=== PATIENT | male | born 1985 | race American Indian/Alaskan Native ===

== ENCOUNTER 2018-12-03 18:29 | Observation (INO) | payer OTHER ==
[~2018-12-03] VITALS: Ht 167.6 cm; Wt 72.6 kg
[~2018-12-03 18:29] MED LIST: ATOM25; BENZ1; BUSP15 PO; Benztropine Mesy1 MG; CHOL10002; DIVA500EC; DIVA500EC PO; GUAN1; LITH450ER; LORA.5 PO; LORA1 PO; MELA3; QUET200; QUET25; RISP1 PO; RISP3; RISP4; TRAZ50; [UNRECOGNIZED DRUG - REMARK]; [UNRECOGNIZED DRUG - REMARK]; [UNRECOGNIZED DRUG - REMARK]
[2018-12-03 19:06] LABS: BASOPHILS ABSOLUTE AUTO 0.07 K/mm3 (0.00-0.23); BASOPHILS PERCENT AUTO 1 % (0-2); EOSINOPHILS ABSOLUTE AUTO 0.26 K/mm3 (0.00-0.68); EOSINOPHILS PERCENT AUTO 2 % (0-6); Hematocrit 44.1 % (37.0-53.0); Hemoglobin 15.2 g/dL (13.5-17.5); IMMATURE GRAN ABSOLUTE AUTO 0.04 K/mm3 (0.00-0.10); IMMATURE GRAN PERCENT AUTO 0 % (0-1); LYMPHOCYTES ABSOLUTE AUTO 2.96 K/mm3 (0.84-5.20); LYMPHOCYTES PERCENT AUTO 24 % (21-46); MONOCYTES ABSOLUTE AUTO 0.95 K/mm3 (0.16-1.47); MONOCYTES PERCENT AUTO 8 % (4-13); Mean Corpuscular HGB Conc 34.5 g/dL (31.5-36.5); Mean Corpuscular Volume 90 fL (80-100); NEUTROPHILS ABSOLUTE AUTO 7.88 K/mm3 (1.96-9.15); NEUTROPHILS PERCENT AUTO 65 % (41-73); Platelet Count 282 K/mm3 (150-400); RDW Coefficient Variation 11.9 % (11.7-14.2); Red Blood Cell Count 4.91 M/mm3 (4.30-5.90); White Blood Cell Count 12.16 K/mm3 (4.00-11.30)
[2018-12-03 19:39] LABS: Alanine Aminotransfer (ALT/SGP 29 U/L (12-78); Albumin, Blood 4.7 g/dL (3.4-5.0); Albumin/Globulin Ratio 1.6 (0.8-1.8); Alk Phos 62 U/L (50-136); Anion Gap 9 mmol/L (6-16); Aspartate Aminotrans (AST/SGOT 26 U/L (12-37); Bilirubin, Total 0.4 mg/dL (0.1-1.0); Blood Urea Nitrogen 6 mg/dL (8-24); Bun/Creatinine Ratio 7.2 (12.0-20.0); CO2, Blood 25 mmol/L (21-32); Chloride, Blood 102 mmol/L (98-108); Creatinine, Blood 0.84 mg/dL (0.60-1.20); Ethanol (Alcohol), Blood, Med <3 mg/dL; Globulin, Blood 2.9 g/dL (2.2-4.0); Glomerular Filtration Rate >60 (60-); Glucose, Blood 125 mg/dL (70-99); Potassium, Blood 3.6 mmol/L (3.5-5.5); Salicylate 9.4 mg/dL (2.8-20.0); Sodium, Blood 136 mmol/L (136-145); Total Protein, Blood 7.6 g/dL (6.4-8.2)
[2018-12-03 19:44] LABS: Thyroid Stimulating Hormone 0.727 uIU/mL (0.360-4.800)
[2018-12-03 20:02] LABS: Acetaminophen, Random <2.0 ug/mL (10.0-30.0)
[2018-12-03 20:47] LABS: Source, Urine Clean Catch
[2018-12-03 20:49] LABS: Bilirubin, Urine Neg (Neg); Blood, Urine Neg (Neg); Glucose Qualitative, Urine Neg (Neg); Ketones, Urine Neg (Neg); Leukocyte Esterase, Urine Neg (Neg); Nitrite, Urine Neg (Neg); Protein, Urine Neg (Neg); Urobilinogen, Urine NORM (Normal)
[2018-12-03 20:50] LABS: Appearance, Urine Clear (Clear); Color, Urine Yellow (P-Yellow)
[2018-12-03 21:04] LABS: U Amphetamine Screen Not Detected; U Barbituate Screen Not Detected; U Benzodiazapine Screen Not Detected; U Buprenorphine Screen Not Detected; U Cannabinoids Screen DETECTED; U Cocaine Screen Not Detected; U Methadone Screen Not Detected; U Methamphetamine Screen Not Detected; U Opiates Screen Not Detected; U Oxycodone Screen Not Detected; U Phencyclidine Screen Not Detected; U Propoxyphene Screen Not Detected
== END 2018-12-06 17:25 ==
LOC: ER 18:29 → EOR 18:39
PROVIDERS: ADMIT Emergency Medicine
DX: F23 Brief psychotic disorder (principal); F17.200 Nicotine dependence, unspecified, uncomplicated; Z79.899 Other long term (current) drug therapy
CPT/HCPCS: 36415; 80053; 81003; 84443; 85025; 96372; 99285-25; G0378; G0480; J1630; J2060; Q3014

== ENCOUNTER 2021-03-13 18:55 | Emergency (ER) | payer OTHER ==
[~2021-03-13] VITALS: Ht 170.2 cm; Wt 77.1 kg
== END 2021-03-13 21:10 | disposition home or self-care (01) ==
LOC: ER 18:55
DX: F25.0 Schizoaffective disorder, bipolar type (principal); Z76.0 Encounter for issue of repeat prescription; Z79.899 Other long term (current) drug therapy; F31.9 Bipolar disorder, unspecified
CPT/HCPCS: 99282

== ENCOUNTER 2023-08-08 06:37 | Observation (INO) | payer OTHER ==
[~2023-08-08] VITALS: Ht 175.3 cm; Wt 72.6 kg
[2023-08-08 07:17] LABS: Source, Urine Voided
[2023-08-08 07:20] LABS: Appearance, Urine Clear (Clear); Bilirubin, Urine Neg (Neg); Blood, Urine Neg (Neg); Color, Urine Yellow (P-Yellow); Glucose Qualitative, Urine Neg (Neg); Ketones, Urine Neg (Neg); Leukocyte Esterase, Urine Neg (Neg); Nitrite, Urine Neg (Neg); Protein, Urine Neg (Neg); Urobilinogen, Urine NORM (Normal)
[2023-08-08 07:22] LABS: BASOPHILS ABSOLUTE AUTO 0.06 K/mm3 (0.00-0.23); BASOPHILS PERCENT AUTO 1 % (0-2); EOSINOPHILS ABSOLUTE AUTO 0.05 K/mm3 (0.00-0.68); EOSINOPHILS PERCENT AUTO 1 % (0-6); Hematocrit 38.3 % (37.0-53.0); Hemoglobin 13.6 g/dL (13.5-17.5); IMMATURE GRAN ABSOLUTE AUTO 0.03 K/mm3 (0.00-0.10); IMMATURE GRAN PERCENT AUTO 1 % (0-1); LYMPHOCYTES ABSOLUTE AUTO 1.37 K/mm3 (0.84-5.20); LYMPHOCYTES PERCENT AUTO 23 % (21-46); MONOCYTES ABSOLUTE AUTO 0.97 K/mm3 (0.16-1.47); MONOCYTES PERCENT AUTO 16 % (4-13); Mean Corpuscular HGB 31.8 pg (26.0-34.0); Mean Corpuscular HGB Conc 35.5 g/dL (31.5-36.5); Mean Corpuscular Volume 90 fL (80-100); Mean Platelet Volume 9.4 fL (9.1-12.4); NEUTROPHILS ABSOLUTE AUTO 3.46 K/mm3 (1.96-9.15); NEUTROPHILS PERCENT AUTO 58 % (41-73); Platelet Count 182 K/mm3 (150-400); RDW Coefficient Variation 13.2 % (11.7-14.2); RDW Standard Deviation 43.5 fL (35.1-46.3); Red Blood Cell Count 4.28 M/mm3 (4.30-5.90); White Blood Cell Count 5.94 K/mm3 (4.00-11.30)
[2023-08-08 07:34] LABS: U Amphetamine Screen Not Detected; U Barbituate Screen Not Detected; U Benzodiazapine Screen Not Detected; U Buprenorphine Screen Not Detected; U Cannabinoids Screen DETECTED; U Cocaine Screen Not Detected; U Methadone Screen Not Detected; U Methamphetamine Screen Not Detected; U Opiates Screen Not Detected; U Oxycodone Screen Not Detected; U Phencyclidine Screen Not Detected
[2023-08-08 07:45] LABS: Ethanol (Alcohol), Blood, Med <3 mg/dL; Salicylate 4.3 mg/dL (2.8-20.0)
[2023-08-08 07:48] LABS: Alanine Aminotransfer (ALT/SGP 28 U/L (12-78); Albumin, Blood 3.8 g/dL (3.4-5.0); Albumin/Globulin Ratio 1.1 (0.8-1.8); Alk Phos 60 U/L (50-136); Anion Gap 3 mmol/L (6-16); Aspartate Aminotrans (AST/SGOT 31 U/L (12-37); Bilirubin, Total 0.3 mg/dL (0.1-1.0); Blood Urea Nitrogen 10 mg/dL (8-24); Bun/Creatinine Ratio 10.5 (12.0-20.0); CO2, Blood 29 mmol/L (21-32); Calcium, Blood 9.4 mg/dL (8.5-10.1); Chloride, Blood 100 mmol/L (98-108); Creatinine, Blood 0.95 mg/dL (0.60-1.20); Globulin, Blood 3.4 g/dL (2.2-4.0); Glomerular Filtration Rate 107 (60-); Glucose, Blood 99 mg/dL (70-99); Potassium, Blood 4.3 mmol/L (3.5-5.5); Sodium, Blood 132 mmol/L (136-145); Total Protein, Blood 7.2 g/dL (6.4-8.2)
[2023-08-08 07:49] LABS: Acetaminophen, Random <2.0 ug/mL (10.0-30.0)
[2023-08-08] MEDS ORDERED: PALIPERIDONE ER6 MG PO (08:26)
[2023-08-08] MEDS ORDERED: ATORVASTATIN CA20 MG PO (08:26)
[2023-08-08] MEDS ORDERED: FENO160 PO (08:26)
[2023-08-08] MEDS ORDERED: OMEP20ER PO (08:26)
[2023-08-08] MEDS ORDERED: CLONAZEPAM2 MG PO (08:26)
[2023-08-08] MEDS ORDERED: PALIPERIDONE ER3 MG PO (08:26)
[2023-08-08] MEDS ORDERED: PRAZ2 PO (08:27)
[2023-08-08] MEDS ORDERED: MELA3 PO (08:28)
[2023-08-08] MEDS ORDERED: NEURONTIN300 MG PO (08:28)
[2023-08-08] MEDS ORDERED: HydrOXYzine Pamoate 50 MG Cap PO PRN (17:15)
[2023-08-08] MEDS ORDERED: Paliperidone 1.5 MG TAB.ER.24 PO SCH ×2 (17:30→21:00)
[2023-08-08] MEDS ORDERED: Prazosin HCl 1 MG Cap PO SCH (21:00)
[2023-08-08] MEDS ORDERED: ClonazePAM 1 MG Tab PO SCH (21:00)
[2023-08-08] MEDS ORDERED: Divalproex Sodium 500 MG TABLET.DR PO SCH (21:00)
[2023-08-08] MEDS ORDERED: Gabapentin 300 MG Cap PO SCH (21:00)
[2023-08-08] MEDS ORDERED: Melatonin 3 MG Tab PO SCH (21:00)
[2023-08-08] MEDS ORDERED: QUEtiapine Fumarate 200 MG Tab PO SCH (21:00)
[2023-08-08] MEDS ORDERED: Nicotine 14 MG PATCH TOP ONE (21:35)
[2023-08-09] MEDS ORDERED: Nicotine 21 MG PATCH TOP SCH (09:00)
[2023-08-09] MEDS ORDERED: Cholecalciferol 1000 Unit Tablet (=25MCG) PO SCH (09:00)
[2023-08-09] MEDS ORDERED: Paliperidone 1.5 MG TAB.ER.24 PO SCH (12:00)
[2023-08-09 16:17] LABS: CHOL/HDL RATIO 2.4; Cholesterol 132 mg/dL (50-200); HDL Cholesterol 55 mg/dL (>39); LDL/HDL RATIO 1.1; Low Density Lipoprotein Chol 60 mg/dL (0-110); Triglycerides 84 mg/dL (30-140); Very Low Density Lipoprot Chol 16 mg/dL (6-28)
[2023-08-09 16:27] LABS: Albumin, Blood 3.6 g/dL (3.4-5.0); Albumin/Globulin Ratio 1.2 (0.8-1.8); Bilirubin, Direct 0.2 mg/dL (0.0-0.3); Bilirubin, Indirect 0.2 mg/dL (0.1-0.7); Bilirubin, Total 0.4 mg/dL (0.1-1.0); Globulin, Blood 3.1 g/dL (2.2-4.0); Total Protein, Blood 6.7 g/dL (6.4-8.2)
[2023-08-09] MEDS ORDERED: Haloperidol Lactate Inj. 5 MG/ML Injection IM ONE (18:45)
[2023-08-09] MEDS ORDERED: DiphenhydrAMINE HCl 50 MG/ML 1ML Vial IM ONE (18:45)
[2023-08-09] MEDS ORDERED: Atorvastatin 10 MG Tab PO SCH (21:00)
[2023-08-10] MEDS ORDERED: Omeprazole 20 MG CapCR PO SCH (06:00)
[2023-08-10] MEDS ORDERED: Fenofibrate, Micronized 134 MG Capsule PO SCH (09:00)
[2023-08-11] MEDS ORDERED: OLANZapine 10 MG Vial IM PRN (11:10)
[2023-08-12] MEDS ORDERED: Ibuprofen 400 MG Tab PO ONE (18:05)
[2023-08-14] MEDS ORDERED: ClonazePAM 1 MG Tab PO SCH (21:00)
[2023-08-15] MEDS ORDERED: ClonazePAM 1 MG Tab PO SCH (08:00)
[2023-08-16] MEDS ORDERED: Omeprazole 20 MG CapCR PO ONE (10:45)
[2023-08-18] MEDS ORDERED: Nicotine 14 MG PATCH TOP SCH (21:10)
[2023-08-19] MEDS ORDERED: ClonazePAM 1 MG Tab PO SCH (21:00)
[2023-08-20] MEDS ORDERED: Omeprazole 20 MG CapCR PO SCH (08:00)
[2023-08-20] MEDS ORDERED: HydrOXYzine Pamoate 50 MG Cap PO PRN (12:10)
[2023-08-20] MEDS ORDERED: Nicotine 21 MG PATCH TOP SCH (13:00)
[2023-08-20 22:56] LABS: BASOPHILS ABSOLUTE AUTO 0.07 K/mm3 (0.00-0.23); BASOPHILS PERCENT AUTO 1 % (0-2); EOSINOPHILS ABSOLUTE AUTO 0.08 K/mm3 (0.00-0.68); EOSINOPHILS PERCENT AUTO 1 % (0-6); Hematocrit 38.8 % (37.0-53.0); Hemoglobin 13.6 g/dL (13.5-17.5); IMMATURE GRAN ABSOLUTE AUTO 0.01 K/mm3 (0.00-0.10); IMMATURE GRAN PERCENT AUTO 0 % (0-1); LYMPHOCYTES ABSOLUTE AUTO 2.36 K/mm3 (0.84-5.20); LYMPHOCYTES PERCENT AUTO 31 % (21-46); MONOCYTES ABSOLUTE AUTO 1.12 K/mm3 (0.16-1.47); MONOCYTES PERCENT AUTO 15 % (4-13); Mean Corpuscular HGB 31.3 pg (26.0-34.0); Mean Corpuscular HGB Conc 35.1 g/dL (31.5-36.5); Mean Corpuscular Volume 89 fL (80-100); Mean Platelet Volume 9.4 fL (9.1-12.4); NEUTROPHILS ABSOLUTE AUTO 4.01 K/mm3 (1.96-9.15); NEUTROPHILS PERCENT AUTO 53 % (41-73); Platelet Count 246 K/mm3 (150-400); RDW Coefficient Variation 12.8 % (11.7-14.2); RDW Standard Deviation 42.4 fL (35.1-46.3); Red Blood Cell Count 4.34 M/mm3 (4.30-5.90); White Blood Cell Count 7.65 K/mm3 (4.00-11.30)
[2023-08-20 23:15] LABS: Albumin, Blood 3.8 g/dL (3.4-5.0); Albumin/Globulin Ratio 1.3 (0.8-1.8); Bilirubin, Total 0.3 mg/dL (0.1-1.0); Bun/Creatinine Ratio 15.4 (12.0-20.0); Calcium, Blood 9.2 mg/dL (8.5-10.1); Creatinine, Blood 1.04 mg/dL (0.60-1.20); Potassium, Blood 4.4 mmol/L (3.5-5.5); Thyroid Stimulating Hormone 2.52 uIU/mL (0.360-4.800); Total Protein, Blood 6.8 g/dL (6.4-8.2)
[2023-08-21] MEDS ORDERED: Omeprazole 20 MG CapCR PO SCH (09:00)
[2023-08-21 11:59] VITALS: BP 123/76
[2023-08-21] MEDS ORDERED: Paliperidone 1.5 MG TAB.ER.24 PO SCH ×2 (12:00→21:00)
== END 2023-08-21 18:51 | disposition short-term general hospital (02) ==
LOC: ER 06:37 → EOR 06:38
PROVIDERS: Emergency Medicine; Student in an Organized Health Care Education/Training Program; ADMIT Emergency Medicine
DX: F25.0 Schizoaffective disorder, bipolar type (principal); F17.210 Nicotine dependence, cigarettes, uncomplicated; F12.10 Cannabis abuse, uncomplicated
CPT/HCPCS: 36415; 80053; 80061; 80076; 81003; 82140; 84443; 85025; 93005; 93010; 96372; 99285-25; A9270; G0378; G0480; J1200; J1630

== ENCOUNTER → 2024-02-19 | Outpatient (CLI) | payer OTHER ==
[~2024-02-19] MED LIST changes: +ATORVASTATIN CA20 MG PO; +CLONAZEPAM2 MG PO; +FENO160 PO; +MELA3 PO; +NEURONTIN300 MG PO; +OMEP20ER PO; +PALIPERIDONE ER3 MG PO; +PALIPERIDONE ER6 MG PO; +PRAZ2 PO
[2024-02-19 17:39] LABS: BASOPHILS ABSOLUTE AUTO 0.03 K/mm3 (0.00-0.23); BASOPHILS PERCENT AUTO 1 % (0-2); EOSINOPHILS ABSOLUTE AUTO 0.01 K/mm3 (0.00-0.68); EOSINOPHILS PERCENT AUTO 0 % (0-6); Hematocrit 34.1 % (37.0-53.0); IMMATURE GRAN ABSOLUTE AUTO 0.01 K/mm3 (0.00-0.10); IMMATURE GRAN PERCENT AUTO 0 % (0-1); LYMPHOCYTES PERCENT AUTO 20 % (21-46); MONOCYTES ABSOLUTE AUTO 0.62 K/mm3 (0.16-1.47); MONOCYTES PERCENT AUTO 9 % (4-13); Mean Corpuscular HGB 31.7 pg (26.0-34.0); Mean Corpuscular HGB Conc 35.2 g/dL (31.5-36.5); Mean Corpuscular Volume 90 fL (80-100); Mean Platelet Volume 10.4 fL (9.1-12.4); NEUTROPHILS ABSOLUTE AUTO 4.68 K/mm3 (1.96-9.15); NEUTROPHILS PERCENT AUTO 70 % (41-73); Platelet Count 213 K/mm3 (150-400); RDW Coefficient Variation 13.8 % (11.7-14.2); RDW Standard Deviation 45.7 fL (35.1-46.3); Red Blood Cell Count 3.79 M/mm3 (4.30-5.90); White Blood Cell Count 6.65 K/mm3 (4.00-11.30)
[2024-02-19 17:48] LABS: Alanine Aminotransfer (ALT/SGP 23 U/L (12-78); Albumin, Blood 3.9 g/dL (3.4-5.0); Albumin/Globulin Ratio 1.3 (0.8-1.8); Alk Phos 39 U/L (50-136); Aspartate Aminotrans (AST/SGOT 22 U/L (12-37); Bilirubin, Direct 0.1 mg/dL (0.0-0.3); Bilirubin, Indirect 0.4 mg/dL (0.1-0.7); Bilirubin, Total 0.5 mg/dL (0.1-1.0); CHOL/HDL RATIO 2.3; Cholesterol 102 mg/dL (50-200); HDL Cholesterol 45 mg/dL (>39); Low Density Lipoprotein Chol 46 mg/dL (0-110); Total Protein, Blood 6.9 g/dL (6.4-8.2); Triglycerides 53 mg/dL (30-140); Valproic Acid 32.8 ug/mL (50.0-100.0); Very Low Density Lipoprot Chol 10 mg/dL (6-28)
== END ==
LOC: LAB SHORT 13:15 → LAB 13:15
PROVIDERS: Registered Nurse
DX: Z51.81 Encounter for therapeutic drug level monitoring (principal); Z79.899 Other long term (current) drug therapy
CPT/HCPCS: 80061; 80076; 80164; 83036; 85025

== ENCOUNTER → 2025-04-20 | Outpatient (CLI) | payer OTHER ==
[2025-04-20 16:22] LABS: BASOPHILS ABSOLUTE AUTO 0.03 K/mm3 (0.00-0.23); BASOPHILS PERCENT AUTO 0 % (0-2); EOSINOPHILS ABSOLUTE AUTO 0.09 K/mm3 (0.00-0.68); EOSINOPHILS PERCENT AUTO 1 % (0-6); Hematocrit 47.3 % (37.0-53.0); Hemoglobin 16.0 g/dL (13.5-17.5); IMMATURE GRAN ABSOLUTE AUTO 0.03 K/mm3 (0.00-0.10); IMMATURE GRAN PERCENT AUTO 0 % (0-1); LYMPHOCYTES ABSOLUTE AUTO 1.84 K/mm3 (0.84-5.20); LYMPHOCYTES PERCENT AUTO 20 % (21-46); MONOCYTES ABSOLUTE AUTO 0.93 K/mm3 (0.16-1.47); MONOCYTES PERCENT AUTO 10 % (4-13); Mean Corpuscular HGB Conc 33.8 g/dL (31.5-36.5); Mean Corpuscular Volume 92 fL (80-100); NEUTROPHILS ABSOLUTE AUTO 6.15 K/mm3 (1.96-9.15); NEUTROPHILS PERCENT AUTO 68 % (41-73); NRBC ABSOLUTE 0.00 K/mm3 (0.00-0.02); NRBC Auto 0.0 /100 WBC (0.0-0.2); Platelet Count 271 K/mm3 (150-400); RDW Coefficient Variation 12.8 % (11.7-14.2); RDW Standard Deviation 43.8 fL (35.1-46.3)
[2025-04-20 23:25] LABS: Alanine Aminotransfer (ALT/SGP 27 U/L (12-78); Albumin, Blood 4.1 g/dL (3.4-5.0); Albumin/Globulin Ratio 1.2 (0.8-1.8); Aspartate Aminotrans (AST/SGOT 23 U/L (12-37); Bilirubin, Direct 0.1 mg/dL (0.0-0.3); Bilirubin, Indirect 0.2 mg/dL (0.1-0.7); Bilirubin, Total 0.3 mg/dL (0.1-1.0); CHOL/HDL RATIO 1.8; Cholesterol 177 mg/dL (50-200); Globulin, Blood 3.3 g/dL (2.2-4.0); HDL Cholesterol 96 mg/dL (>39); LDL/HDL RATIO 0.7; Low Density Lipoprotein Chol 70 mg/dL (0-110); Total Protein, Blood 7.4 g/dL (6.4-8.2); Triglycerides 54 mg/dL (30-140); Very Low Density Lipoprot Chol 10 mg/dL (6-28)
== END | disposition home or self-care (01) ==
LOC: LAB SHORT 13:49 → LAB 13:49
PROVIDERS: Registered Nurse
DX: Z51.81 Encounter for therapeutic drug level monitoring (principal); Z79.899 Other long term (current) drug therapy
CPT/HCPCS: 80061; 80076; 80164; 83036; 85025